=== PATIENT | female | born 1975 ===

== ENCOUNTER 2023-10-27 14:24 | Inpatient (IN) ==
[2023-10-28] MEDS: Al Hydrox/Mg Hydrox/Simet LIQ 30 ML UDC PO PRN (06:46)
[2023-10-28] MEDS: Vitamin THERAPEUTIC TAB PO SCH (08:47)
[2023-10-29] MEDS: Nicotine GUM 2MG FRUIT FLAVOR PO PRN (21:06)
[2023-11-02] MEDS: Nicotine PATCH 21 MG/24 HR PATCH TRANSDERM SCH (10:30)
[2023-11-12] MEDS: CMCS:Lithium Carb ER 300 mg TAB(NF) PO SCH (20:42)
[2023-11-13] MEDS: Paliperidone SUSTENNA 234 MG/1.5 ML IM ONE (16:04)
[2023-11-13] MEDS: Nicotine Lozenge mini 2 MG LOZNG.MINI MT PRN (20:28)
[2023-11-19] MEDS: Senna TAB 8.6 mg TAB PO PRN (17:35)
== END 2023-11-23 10:09 | disposition home or self-care (01) | DRG 885 ==
LOC: BSU 19:04
PROVIDERS: ADMIT Psychiatry & Neurology Psychiatry; ATTEND Student in an Organized Health Care Education/Training Program

== ENCOUNTER 2023-12-14 15:39 | Inpatient (IN) ==
[2023-12-14] MEDS: OLANZapine 10 mg TAB*ODT PO ONE (16:48)
[2023-12-14 16:57] LABS: Urine Appearance Clear; Urine Bilirubin Negative (Negative); Urine Blood Negative (Negative); Urine Color Light-Yellow; Urine Glucose Negative (Negative); Urine Ketones Negative (Negative); Urine Nitrite Negative (Negative); Urine Protein Negative (Negative); Urine Specific Gravity 1.021 (1.002-1.030); Urine Urobilinogen Negative (Negative)
[2023-12-14 17:03] LABS: ABS Basophils 0.1 10^3/uL (0.0-0.1); ABS Eosinophils 0.3 10^3/uL (0.0-0.5); ABS Lymphocytes 2.1 10^3/uL (1.0-4.8); ABS Monocytes 0.5 10^3/uL (0.0-0.9); ABS Neutrophils 4.2 10^3/uL (1.5-7.6); ABS Nucleated RBC 0.01 10^3/ul; Eosinophil % 4.3 %; Hematocrit 35.8 % (35-45); Lymphocyte % 28.9 %; Mean Corpuscular Hemoglobin 30.9 pg (27-33); Mean Corpuscular Hgb Conc 33.6 g/dL (31-36); Mean Corpuscular Volume 91.9 fL (80-97); Mean Platelet Volume 7.5 fL (7.5-11.2); Nucleated Red Blood Cells % 0.1 %/100WBC (0.0-0.8); Platelet Count 276 10^3/uL (150-450); Red Cell Distribution Width 14.8 % (12-17); White Blood Count 7.2 10^3/uL (3.8-11.8)
[2023-12-14 17:43] LABS: Urine Benzodiazepine Screen None Detected (None Detect); Urine Cannabinoids Screen Presumptive Positive (None Detect); Urine Opiates Screen None Detected (None Detect)
[2023-12-14] MEDS ORDERED: Adenosine 3 MG/ML 2 ml VIAL (6 mg) IV PUSH PRN (18:07)
[2023-12-14 18:28] LABS: HCG Pregnancy < 0.60 mIU/mL
[2023-12-14 18:36] LABS: ALT 58 U/L (7-52); AST 33 U/L (13-39); Acetaminophen < 15 mcg/mL; Albumin 3.6 g/dL (3.2-5.2); Albumin/Globulin Ratio 1.4 (1-3); Alcohol, S < 13 mg/dL (<13); Alkaline Phosphatase 64 U/L (35-149); Anion Gap 5 mmol/L (2-16); Blood Urea Nitrogen 17 mg/dL (6-24); CO2 Carbon Dioxide 27 mmol/L (22-32); Calcium 8.7 mg/dL (8.6-10.3); Chloride 106 mmol/L (101-111); Creatinine, Serum 0.94 mg/dL (0.51-0.95); Globulin 2.6 g/dL (2-4); Glucose 99 mg/dL (70-100); Potassium 3.9 mmol/L (3.5-5.0); Salicylate < 2.50 mg/dL (<30); Sodium 138 mmol/L (135-145); TSH Ultra Thyroid Stim Horm 0.75 mcIU/mL (0.34-5.60); Total Bilirubin 0.3 mg/dL (0.2-1.0); Total Protein 6.2 g/dL (6.4-8.9); eGFR CKD-EPI 75.3 (>60)
[2023-12-14] MEDS: Adenosine 3 MG/ML 2 ml VIAL (6 mg) IV PUSH ONE (18:43)
[2023-12-14 21:31] LABS: Lithium < 0.16 mmol/L (0.6-1.2)
[2023-12-15] MEDS: Nicotine GUM 4MG FRUIT FLAVOR PO PRN (10:01)
[2023-12-15] MEDS: Nicotine PATCH 21 MG/24 HR PATCH ONE (16:15)
[2023-12-15] MEDS: Nicotine PATCH 21 MG/24 HR PATCH TRANSDERM SCH (19:16)
[2023-12-16 08:42] LABS: HDL Cholesterol 50.4 mg/dL
[2023-12-17] MEDS: Al Hydrox/Mg Hydrox/Simet LIQ 30 ML UDC PO PRN (07:37)
[2023-12-17] MEDS: OLANZapine 10 mg TAB*ODT PO PRN (15:16)
[2023-12-19] MEDS: Albuterol HFA INHALER 8 gm MDI INH PRN (04:03)
[2023-12-19] MEDS: Benzocaine/Menthol LOZ PO PRN (23:59)
[2023-12-21] MEDS ORDERED: guaiFENesin 100 mg/5 ml LIQ unit dose cup PO PRN (13:44)
[2023-12-21] MEDS ORDERED: Albuterol HFA INHALER 8 gm MDI INH PRN (14:49)
[2023-12-21] MEDS: Albuterol HFA INHALER 8 gm MDI INH PRN (18:37)
[2023-12-23] MEDS: Hemorrhoidal OINT 1 TUBE TOPICAL PRN (11:03)
[2023-12-24] MEDS: Benzocaine/Menthol LOZ PO PRN (10:42)
[2023-12-25] MEDS: Lithium Carbonate ER 450mg TAB PO SCH (20:02)
[2023-12-25] MEDS: Lithium Carb ER 300 mg TAB(NF) PO SCH (20:03)
[2023-12-27] MEDS: OLANZapine 5 mg TAB *ODT PO PRN (20:16)
[2023-12-30 11:20] VITALS: BP 123/75
== END 2023-12-30 13:10 | disposition home or self-care (01) | DRG 885 ==
LOC: ED 15:39 → EDHOLD 21:22 → BSU 23:21
PROVIDERS: ADMIT Psychiatry & Neurology Psychiatry; ATTEND Student in an Organized Health Care Education/Training Program

== ENCOUNTER 2024-04-05 10:40 | Inpatient (IN) ==
[2024-04-05 11:33] LABS: Urine Appearance Clear; Urine Bilirubin Negative (Negative); Urine Blood Negative (Negative); Urine Color Light-Yellow; Urine Glucose Negative (Negative); Urine Ketones Negative (Negative); Urine Nitrite Negative (Negative); Urine Protein Negative (Negative); Urine Specific Gravity 1.005 (1.002-1.030); Urine Urobilinogen Negative (Negative)
[2024-04-05 11:57] LABS: Urine Benzodiazepine Screen None Detected (None Detect); Urine Cannabinoids Screen Presumptive Positive (None Detect); Urine Opiates Screen None Detected (None Detect)
[2024-04-05] MEDS: Paliperidone SUSTENNA 234 MG/1.5 ML IM SCH (16:10)
[2024-04-06] MEDS: CMCS: Lithium Carb ER 300 mg TAB(NF) PO SCH (00:14)
[2024-04-06] MEDS: Lithium Carbonate ER 450mg TAB PO SCH (00:15)
[2024-04-06] MEDS: Haloperidol 5 mg/ml SDV IV/IM 5 MG/ML AMP ONE (08:47)
[2024-04-06] MEDS: LORazepam 2 MG/ML 1 mL Syringe ONE (08:47)
[2024-04-06] MEDS: OLANZapine 10 mg TAB*ODT ONE (13:46)
[2024-04-07] MEDS: Al Hydrox/Mg Hydrox/Simet LIQ 30 ML UDC PO PRN (15:27)
[2024-04-08 08:28] LABS: ABS Basophils 0.1 10^3/uL (0.0-0.1); ABS Eosinophils 0.4 10^3/uL (0.0-0.5); ABS Lymphocytes 1.4 10^3/uL (1.0-4.8); ABS Monocytes 0.5 10^3/uL (0.0-0.9); ABS Neutrophils 4.7 10^3/uL (1.5-7.6); ABS Nucleated RBC 0.01 10^3/ul; Eosinophil % 5.3 %; Hematocrit 44.4 % (35-45); Hemoglobin 14.5 g/dL (11.5-14.3); Lymphocyte % 19.9 %; Mean Corpuscular Hemoglobin 29.9 pg (27-33); Mean Corpuscular Hgb Conc 32.6 g/dL (31-36); Mean Corpuscular Volume 91.7 fL (80-97); Mean Platelet Volume 8.8 fL (7.5-11.2); Nucleated Red Blood Cells % 0.2 %/100WBC (0.0-0.8); Platelet Count 239 10^3/uL (150-450); Red Blood Count 4.84 10^6/uL (3.63-4.92); Red Cell Distribution Width 15.2 % (12-17)
[2024-04-08 08:37] LABS: HDL Cholesterol 52.8 mg/dL
[2024-04-08 08:48] LABS: ALT 57 U/L (7-52); AST 36 U/L (13-39); Acetaminophen < 15 mcg/mL; Albumin/Globulin Ratio 1.3 (1-3); Alcohol, S < 13 mg/dL (<13); Alkaline Phosphatase 58 U/L (35-149); Anion Gap 9 mmol/L (2-16); Blood Urea Nitrogen 11 mg/dL (6-24); CO2 Carbon Dioxide 24 mmol/L (22-32); Calcium 9.4 mg/dL (8.6-10.3); Chloride 107 mmol/L (101-111); Creatinine, Serum 0.76 mg/dL (0.51-0.95); Glucose 98 mg/dL (70-100); Potassium 4.3 mmol/L (3.5-5.0); Salicylate < 2.50 mg/dL (<30); Sodium 140 mmol/L (135-145); Total Bilirubin 0.4 mg/dL (0.2-1.0); eGFR CKD-EPI 97.2 (>60)
[2024-04-08 08:54] LABS: TSH Ultra Thyroid Stim Horm 1.43 mcIU/mL (0.34-5.60)
[2024-04-08] MEDS: OLANZapine 10 mg TAB*ODT PO PRN (10:27)
[2024-04-08] MEDS: OLANZapine 10 mg TAB*ODT PO ONE (14:07)
[2024-04-08] MEDS ORDERED: Lithium Carb ER 300 mg TAB(NF) PO SCH (21:00)
[2024-04-09] MEDS: Nicotine GUM 4MG FRUIT FLAVOR PO PRN (14:19)
[2024-04-09] MEDS: Nicotine PATCH 21 MG/24 HR PATCH TRANSDERM SCH (14:55)
[2024-04-12] MEDS: Albuterol HFA INHALER 8 gm MDI INH PRN (19:04)
[2024-04-12] MEDS: Lithium Carb ER 300 mg TAB(NF) PO SCH (19:59)
[2024-04-12] MEDS: Lithium Carbonate ER 450mg TAB PO SCH (19:59)
[2024-05-03] MEDS: Nicotine GUM 4MG FRUIT FLAVOR PO ONE (13:29)
[2024-05-04] MEDS: Nicotine GUM 4MG FRUIT FLAVOR PO PRN (18:31)
[2024-05-12 08:35] VITALS: BP 107/76
== END 2024-05-12 11:50 | DRG 885 ==
LOC: ED 10:40 → EDHOLD 11:58 → BSU 12:50
PROVIDERS: ADMIT Psychiatry & Neurology Psychiatry; ATTEND Student in an Organized Health Care Education/Training Program